=== PATIENT | female | born 1960 | race American Indian/Alaskan Native ===

== ENCOUNTER 2019-03-25 10:30 | Emergency (ER) | payer OTHER ==
[2019-03-25 10:59] VITALS: BP 140/76
--- NOTE | 2019-03-25 11:05 | Emergency Department Report ---
Chief Complaint: Upper Respiratory Infection Stated Complaint: CHEST PAIN,COUGH,FEVER Time Seen by Provider: 03/25/19 11:02 - HPI History of Present Illness: 58 yo female who presents with cough nasal congestion temperature 99 F. - Exam Vital Signs: Vital Signs 03/25/19 10:57 Temperature 97.8 F Pulse Rate 82 Respiratory 18 Rate Blood Pressure 140/76 O2 Sat by Pulse 97 Oximetry Physical Exam: well appearing normal vital signs lung CTA B no oropharygeal lesions steady normal gait MSE screening note: Focused history and physical exam performed. Due to findings the following was ordered: URI, viral: no indication for abx MSE performed recommended OTC treatment ED Disposition for MSE Clinical Impression: Viral upper respiratory illness Disposition: Z MED SCREENING EXAM-LEFT Is pt being admited?: No Does the pt Need Aspirin: No Condition: Stable Additional Instructions: Please use Aftrin, Claritin and cough syrup for the next 7 days. The virus will last for 7-10 days.
== END 2019-03-25 11:05 | disposition left against medical advice (07) ==
LOC: ED 10:30
DX: J06.9 Acute upper respiratory infection, unspecified (principal)
CPT/HCPCS: 99281

== ENCOUNTER 2020-06-04 13:49 | Inpatient (IN) | payer BC, OTHER ==
--- NOTE | 2020-06-04 15:11 | Emergency Department Report ---
Blank Doc - Documentation Documentation: 59-year-old female that presents with cough, chest pain, shortness of breath and dizziness. Febrile and tachycardia in triage. 1- This initial assessment/diagnostic orders/clinical plan/ treatment(s) is/are subject to change based on pt's health status, clinical progression and re- assessment by fellow clinical providers in the ED. Further treatment and workup at subsequent clinical provers discretion. Patient/guardians urged not to elope from ED as their condition may be serious if not clinically assessed and managed. 2-cardiac/sepsis work-up
[2020-06-04] MEDS ORDERED: ACETAMINOPHEN 500 MG TAB PO ONE (15:16)
--- NOTE | 2020-06-04 15:24 | XRay Report ---
CHEST PA AND LATERAL VIEWS INDICATION: Chest Pain. COMPARISON: None. FINDINGS: Support devices: None. Heart: Within normal limits. Lungs/Pleura: There are patchy bilateral pulmonary opacities. No pleural abnormality. IMPRESSION: 1. Patchy bilateral pulmonary opacities are nonspecific. These could be inflammatory. CT would be use ful to better characterize these. Signer Name: Chidi Tracey MD Signed: 06/04/2020 3:19 PM Workstation Name: [id number]
[2020-06-04 16:02] LABS: Alanine Aminotransferase 24 units/L (7-56); Albumin 3.8 g/dL (3.9-5); Blood Urea Nitrogen 10 mg/dL (7-17); Calcium 8.2 mg/dL (8.4-10.2); Hemolysis Index 1
[2020-06-04 16:08] LABS: BUN/Creatinine Ratio 17
[2020-06-04 16:22] LABS: Basophils % (Auto) 0.2 % (0.0-1.8); Eosinophils # (Auto) 0.1 K/mm3 (0.0-0.4); Eosinophils % (Auto) 2.2 % (0.0-4.3); Hematocrit 37.1 % (30.3-42.9); Hemoglobin 12.5 gm/dl (10.1-14.3); Lymphocytes # (Auto) 0.8 K/mm3 (1.2-5.4); Lymphocytes % (Auto) 19.3 % (13.4-35.0); Mean Corpuscular HGB Conc 34 % (30-34); Mean Corpuscular Volume 84 fl (79-97); Monocytes # (Auto) 0.1 K/mm3 (0.0-0.8); Monocytes % (Auto) 2.9 % (0.0-7.3); Red Cell Distribution Width 14.6 % (13.2-15.2)
[2020-06-04 16:26] LABS: Platelet Count 85 K/mm3 (140-440)
[2020-06-04 16:27] LABS: Bilirubin,Urine NEG (Negative); Blood,Urine SM (Negative); Color,Urine Yellow (Yellow); Protein,Urine <15 mg/dL mg/dL (Negative); Urobilinogen,Urine < 2.0 mg/dL (<2.0)
[2020-06-04 16:34] LABS: INR 1.12 (0.87-1.13)
[2020-06-04 16:35] LABS: Partial Thromboplastin Time 30.3 Sec. (24.2-36.6)
[2020-06-04] MEDS ORDERED: cefTRIAXone/NS 2 GM/100 ML 2 GM/100 ML BAG IV ONE (17:14)
[2020-06-04] MEDS ORDERED: AZITHROMYCIN/NS 500 MG/250 ML 500 MG/250 ML BAG IV ONE (17:14)
--- NOTE | 2020-06-04 17:51 | History and Physical Report ---
History of Present Illness Chief complaint: I feel weak, I have been coughing and I feel dizzy History of present illness: 59 YO Female with NO PMH presents to ED for evaluation. Patient reports "I feel weak, I have been coughing". Patient states that she has experienced generalized weakness, body aches, dry cough, decreased exercise tolerance, malaise, loss of sense of smell, loss of sense of taste over the past 5 days with persistently worsening symptoms over the same timeframe. Patient transported to [facility] via private vehicle for further care and evaluation of the aforementioned symptoms. The patient was seen and evaluated in the emergency department. All lab and imaging studies reviewed. The patient underwent a checks x-ray which revealed bilateral pneumonia. The patient was found to have a pulse oximetry of 88% on exertion which is consistent with acute hypoxemic respiratory failure. The patient was admitted to the medical floor and initiated on pneumonia protocol as well as coronavirus protocol. Patient denies fever, chills, chest pain, skin rash, recent ill contacts, or known exposure to COVID-19. Patient received the first dose of her COVID-19 vaccination. Series. No prior admission for review. No medication listed at time of admission for reconciliation. Past History Past Medical History: No medical history, other (Reviewed) Past Surgical History: No surgical history, Other (Reviewed) Social history: single. denies: smoking, alcohol abuse, prescription drug abuse Family history: no significant family history (Reviewed) Medications and Allergies Allergies Allergy/AdvReac Type Severity Reaction Status Date / Time No Known Allergies Allergy Unverified 03/25/19 10:50 Active Meds: Active Medications Azithromycin (Zithromax/Ns) 500 mg in 250 mls @ 250 mls/hr IV ONCE ONE; Protoco l Stop: 06/04/20 18:13 Last Admin: 06/04/20 17:40 Dose: 250 mls/hr Documented by: Review of Systems Constitutional: fatigue, weakness, malaise, no weight loss, no weight gain, no fever, no chills Ears, nose, mouth and throat: other (Loss of sense of smell, loss of sense of taste), no ear pain, no ear discharge, no decreased hearing Breasts: no change in shape, no swelling, no mass Cardiovascular: no chest pain, no orthopnea, no palpitations, no rapid/irregular heart beat Respiratory: cough, cough with sputum, no hemoptysis Gastrointestinal: no abdominal pain, no nausea, no vomiting, no constipation, no change in bowel habits Genitourinary Female: no pelvic pain, no flank pain, no dysuria, no urinary frequency, no urgency Rectal: no pain, no incontinence, no bleeding Musculoskeletal: no neck stiffness, no arm numbness/tingling Integumentary: no rash, no pruritis, no sores, no wounds, no jaundice Neurological: no head injury, no weakness, no parathesias, no tingling, no seizures, no syncope, no tremors Psychiatric: no anxiety, no change in sleep habits, no insomnia, no hypersomnia, no change in appetite, no change in libido Endocrine: no cold intolerance, no polyphagia, no excessive thirst, no polydipsia, no polyuria, no excessive sweating Hematologic/Lymphatic: no easy bruising, no easy bleeding, no lymphadenopathy, no lymphedema Allergic/Immunologic: no anaphylaxis Exam - Constitutional Vitals: Temp Pulse Resp BP Pulse Ox 102.5 F H 80 20 124/74 95 06/04/20 14:25 06/04/20 16:25 06/04/20 17:13 06/04/20 14:25 06/04/20 17:13 General appearance: Present: mild distress - EENT Eyes: Present: PERRL ENT: hearing intact, clear oral mucosa - Neck Neck: Present: supple, normal ROM - Respiratory Respiratory effort: normal, labored, accessory muscle use Respiratory: bilateral: diminished, rhonchi - Cardiovascular Heart Sounds: Present: S1 & S2. Absent: rub, click - Extremities Extremities: pulses symmetrical, No edema Peripheral Pulses: within normal limits - Abdominal General gastrointestinal: Present: soft, non-tender, non-distended, normal bowel sounds Female genitourinary: Present: normal - Integumentary Integumentary: Present: clear, warm, dry - Musculoskeletal Musculoskeletal: gait normal, strength equal bilaterally - Psychiatric Psychiatric: appropriate mood/affect, intact judgment & insight - Neurologic Neurologic: CNII-XII intact, moves all extremities HEART Score - HEART Score Troponin: Troponin T < 0.010 ng/mL (0.00-0.029) 06/04/20 15:24 Results - Labs CBC & Chem 7: 06/04/20 15:24 06/04/20 17:44 Labs: Abnormal lab results 06/04/20 06/04/20 Range/Units 15:24 15:24 WBC 4.4 L (4.5-11.0) K/mm3 Plt Count 85 L (140-440) K/mm3 Lymph # (Auto) 0.8 L (1.2-5.4) K/mm3 Seg Neutrophils % 75.4 H (40.0-70.0) % Sodium 135 L (137-145) mmol/L Potassium 3.2 L (3.6-5.0) mmol/L Glucose 115 H (65-100) mg/dL Calcium 8.2 L (8.4-10.2) mg/dL Albumin 3.8 L (3.9-5) g/dL Assessment and Plan - Patient Problems (1) Acute hypoxemic respiratory failure Current Visit: Yes Status: Acute Plan to address problem: Chest x-ray, supplemental oxygen, pulse oximetry, nebulizer therapy, prone positioning while in bed, supportive care. (2) Bilateral pneumonia Current Visit: Yes Status: Acute Plan to address problem: Chest x-ray, CBC, CMP, supplemental oxygen, pulse oximetry, nebulizer therapy, blood culture, IV antibiotic therapy. (3) Suspected 2019 novel coronavirus infection Current Visit: Yes Status: Acute Plan to address problem: Coronavirus protocol: Contact precautions, isolation precautions, IV steroid therapy, IV antibiotic therapy, vitamin D therapy, vitamin C therapy, zinc therapy, prone positioning while in bed, (4) DVT prophylaxis Current Visit: Yes Status: Acute Plan to address problem: SCDs bilateral lower extremities while in bed, prophylactic anticoagulation. (5) Advance care planning Current Visit: Yes Status: Acute Plan to address problem: Disease education conducted, care plan discussed, diagnoses discussed, prognosis discussed, patient is full code, patient knowledges understanding agree with care plan, +30 minutes.
[2020-06-04] MEDS ORDERED: ALBUTEROL 2.5 MG/3 ML NEBU IH PRN (17:56)
[2020-06-04] MEDS ORDERED: ONDANSETRON 4 MG/2 ML INJ IV PRN (17:56)
[2020-06-04] MEDS ORDERED: ACETAMINOPHEN 325 MG TAB PO PRN (17:56)
--- NOTE | 2020-06-04 17:59 | Emergency Department Report ---
- General Chief Complaint: Chest Pain Stated Complaint: CHEST PAIN,DIZZINESS, COUGH, DIARRHEA Time Seen by Provider: 06/04/20 14:32 Source: patient Mode of arrival: Wheelchair Limitations: No Limitations - History of Present Illness Initial Comments: Patient is a 59-year-old F [place] female who is presenting with body aches cough. Patient is been symptomatic for 5 days. Cough is nonproductive. She does have decreased sense of taste and smell. Short of breath with exertion. Denies nausea vomiting but does have generalized body aches and diarrhea. Patient did receive her first dose of COVID-19 vaccine recently. - Related Data Allergies Allergy/AdvReac Type Severity Reaction Status Date / Time No Known Allergies Allergy Unverified 03/25/19 10:50 ED Review of Systems ROS: Stated complaint: CHEST PAIN,DIZZINESS, COUGH, DIARRHEA Other details as noted in HPI Comment: All other systems reviewed and negative ED Past Medical Hx - Past Medical History Previous Medical History?: No - Surgical History Past Surgical History?: No - Social History Smoking Status: Never Smoker Substance Use Type: None ED Physical Exam - General Limitations: No Limitations General appearance: alert, in no apparent distress, other (ill appearing but non toxic) - Head Head exam: Present: atraumatic, normocephalic - Eye Eye exam: Present: normal appearance - ENT ENT exam: Present: mucous membranes moist - Neck Neck exam: Present: normal inspection - Respiratory Respiratory exam: Present: respiratory distress (tachynea), rhonchi. Absent: normal lung sounds bilaterally, wheezes, rales - Cardiovascular Cardiovascular Exam: Present: regular rate, normal rhythm, normal heart sounds. Absent: systolic murmur, diastolic murmur, rubs, gallop - GI/Abdominal GI/Abdominal exam: Present: soft, normal bowel sounds. Absent: distended, tenderness, guarding, rebound - Extremities Exam Extremities exam: Present: normal inspection - Back Exam Back exam: Present: normal inspection - Neurological Exam Neurological exam: Present: alert, oriented X3 - Psychiatric Psychiatric exam: Present: normal affect, normal mood - Skin Skin exam: Present: warm, dry, intact, normal color. Absent: rash ED Course Vital Signs 06/04/20 06/04/20 06/04/20 14:25 15:59 16:25 Temperature 102.5 F H Pulse Rate 104 H 80 Respiratory 20 18 18 Rate Blood Pressure 124/74 [Right] O2 Sat by Pulse 99 95 Oximetry 06/04/20 06/04/20 17:11 17:13 Temperature Pulse Rate Respiratory 20 Rate Blood Pressure [Right] O2 Sat by Pulse 88 95 Oximetry ED Medical Decision Making - Lab Data Result diagrams: 06/04/20 15:24 06/04/20 15:24 Lab Results 06/04/20 06/04/20 06/04/20 Range/Units 15:24 15:24 15:24 WBC 4.4 L (4.5-11.0) K/mm3 RBC 4.40 (3.65-5.03) M/mm3 Hgb 12.5 (10.1-14.3) gm/dl Hct 37.1 (30.3-42.9) % MCV 84 (79-97) fl MCH 28 (28-32) pg MCHC 34 (30-34) % RDW 14.6 (13.2-15.2) % Plt Count 85 L (140-440) K/mm3 Lymph % (Auto) 19.3 (13.4-35.0) % Park % (Auto) 2.9 (0.0-7.3) % Eos % (Auto) 2.2 (0.0-4.3) % Baso % (Auto) 0.2 (0.0-1.8) % Lymph # (Auto) 0.8 L (1.2-5.4) K/mm3 Park # (Auto) 0.1 (0.0-0.8) K/mm3 Eos # (Auto) 0.1 (0.0-0.4) K/mm3 Baso # (Auto) 0.0 (0.0-0.1) K/mm3 Seg Neutrophils % 75.4 H (40.0-70.0) % Seg Neutrophils # 3.3 (1.8-7.7) K/mm3 PT 14.3 (12.2-14.9) Sec. INR 1.12 (0.87-1.13) APTT 30.3 (24.2-36.6) Sec. Sodium 135 L (137-145) mmol/L Potassium 3.2 L (3.6-5.0) mmol/L Chloride 98.6 (98-107) mmol/L Carbon Dioxide 25 (22-30) mmol/L Anion Gap 15 mmol/L BUN 10 (7-17) mg/dL Creatinine 0.6 (0.6-1.2) mg/dL Estimated GFR > 60 ml/min BUN/Creatinine Ratio 17 % Glucose 115 H (65-100) mg/dL Lactic Acid (0.7-2.0) mmol/L Calcium 8.2 L (8.4-10.2) mg/dL Total Bilirubin 0.40 (0.1-1.2) mg/dL AST 36 (5-40) units/L ALT 24 (7-56) units/L Alkaline Phosphatase 59 (35-129) units/L Troponin T < 0.010 (0.00-0.029) ng/mL Total Protein 6.9 (6.3-8.2) g/dL Albumin 3.8 L (3.9-5) g/dL Albumin/Globulin Ratio 1.2 % Urine Color (Yellow) Urine Turbidity (Clear) Urine pH (5.0-7.0) Ur Specific [place] (1.003-1.030) Urine Protein (Negative) mg/dL Urine Glucose (UA) (Negative) mg/dL Urine Ketones (Negative) mg/dL Urine Blood (Negative) Urine Nitrite (Negative) Urine Bilirubin (Negative) Urine Urobilinogen (<2.0) mg/dL Ur Leukocyte Esterase (Negative) Urine WBC (Auto) (0.0-6.0) /HPF Urine RBC (Auto) (0.0-6.0) /HPF U Epithel Cells (Auto) (0-13.0) /HPF 06/04/20 06/04/20 Range/Units 15:24 16:11 WBC (4.5-11.0) K/mm3 RBC (3.65-5.03) M/mm3 Hgb (10.1-14.3) gm/dl Hct (30.3-42.9) % MCV (79-97) fl MCH (28-32) pg MCHC (30-34) % RDW (13.2-15.2) % Plt Count (140-440) K/mm3 Lymph % (Auto) (13.4-35.0) % Park % (Auto) (0.0-7.3) % Eos % (Auto) (0.0-4.3) % Baso % (Auto) (0.0-1.8) % Lymph # (Auto) (1.2-5.4) K/mm3 [place] # (Auto) (0.0-0.8) K/mm3 Eos # (Auto) (0.0-0.4) K/mm3 Baso # (Auto) (0.0-0.1) K/mm3 Seg Neutrophils % (40.0-70.0) % Seg Neutrophils # (1.8-7.7) K/mm3 PT (12.2-14.9) Sec. INR (0.87-1.13) APTT (24.2-36.6) Sec. Sodium (137-145) mmol/L Potassium (3.6-5.0) mmol/L Chloride (98-107) mmol/L Carbon Dioxide (22-30) mmol/L Anion Gap mmol/L BUN (7-17) mg/dL Creatinine (0.6-1.2) mg/dL Estimated GFR ml/min BUN/Creatinine Ratio % Glucose (65-100) mg/dL Lactic Acid 0.70 (0.7-2.0) mmol/L Calcium (8.4-10.2) mg/dL Total Bilirubin (0.1-1.2) mg/dL AST (5-40) units/L ALT (7-56) units/L Alkaline Phosphatase (35-129) units/L Troponin T (0.00-0.029) ng/mL Total Protein (6.3-8.2) g/dL Albumin (3.9-5) g/dL Albumin/Globulin Ratio % Urine Color Yellow (Yellow) Urine Turbidity Clear (Clear) Urine pH 6.0 (5.0-7.0) Ur Specific [place] 1.010 (1.003-1.030) Urine Protein <15 mg/dl (Negative) mg/dL Urine Glucose (UA) Neg (Negative) mg/dL Urine Ketones Neg (Negative) mg/dL Urine Blood Sm (Negative) Urine Nitrite Neg (Negative) Urine Bilirubin Neg (Negative) Urine Urobilinogen < 2.0 (<2.0) mg/dL Ur Leukocyte Esterase Tr (Negative) Urine WBC (Auto) 1.0 (0.0-6.0) /HPF Urine RBC (Auto) 1.0 (0.0-6.0) /HPF U Epithel Cells (Auto) 1.0 (0-13.0) /HPF - Radiology Data [facility] [address] [place] [address] XRay Report Signed Patient: MARINA NOBLE MR#: [id number] 52 : 1960 Acct:[id number] Age/Sex: 59 / F ADM Date: 06/04/20 Loc: ED Attending Dr: Ordering Physician: CRUZ MORALES NP Date of Service: 06/04/20 Procedure(s): XR chest routine 2V Accession Number(s): [id number] cc: CRUZ MORALES NP Fluoro Time In Minutes: CHEST PA AND LATERAL VIEWS INDICATION: Chest Pain. COMPARISON: None. FINDINGS: Support devices: None. Heart: Within normal limits. Lungs/Pleura: There are patchy bilateral pulmonary opacities. No pleural abnormality. IMPRESSION: 1. Patchy bilateral pulmonary opacities are nonspecific. These could be inflammatory. CT would be useful to better characterize these. Signer Name: Chidi Tracey MD Signed: 06/04/2020 3:19 PM Workstation Name: [id number] - Medical Decision Making Patient's chest x-ray is significant for patchy bilateral infiltrates suggestive of COVID-19 pneumonia. Patient O2 sat is within normal limits while sitting but with minor ambulation she drops into the mid 80s. O2 sat was was witnessed by myself at 88%. Patient to be admitted to the hospitalist service for further management. Critical Care Time: Yes (30) Critical care attestation.: If time is entered above; I have spent that time in minutes in the direct care of this critically ill patient, excluding procedure time. ED Disposition Clinical Impression: Bilateral pneumonia, Hypoxia, Suspected 2019 novel coronavirus infection Disposition: OP ADMIT IP TO THIS HOSP Is pt being admited?: Yes Does the pt Need Aspirin: No Condition: Stable Instructions: Bacterial Pneumonia (ED) Referrals: PRIMARY CARE, [Primary Care Provider] - 3-5 Days Time of Disposition: 18:00
[2020-06-04] MEDS ORDERED: dexAMETHasone 20 MG/5 ML VIAL IV ONE (18:24)
[2020-06-04 18:56] LABS: C-Reactive Protein 11.1 mg/dL (0.00-1.30)
[2020-06-04] MEDS ORDERED: SODIUM CHLORIDE 0.9% 1000 ML 1,000 ML IV ONE (19:16)
[2020-06-04] MEDS: methylPREDNISolone Sod Succinate 40 MG/1 ML INJ IV SCH (20:29)
[2020-06-04] MEDS ORDERED: POTASSIUM CHLORIDE ER 20 MEQ TAB PO ONE (21:32)
[2020-06-04] MEDS: ZINC SULFATE 220 MG CAP PO SCH (23:20)
[2020-06-04] MEDS: ASCORBIC ACID 500 MG TAB PO SCH (23:20)
[2020-06-04] MEDS: HEPARIN 5,000 UNIT/1 ML VIAL SUB-Q SCH (23:21)
[2020-06-05] MEDS: SODIUM CHLORIDE 0.9% 1000 ML 1,000 ML IV SCH (00:49)
[2020-06-05] MEDS: methylPREDNISolone Sod Succinate 40 MG/1 ML INJ IV SCH ×3 (03:31→21:16)
--- NOTE | 2020-06-05 07:26 | Progress Note ---
Assessment and Plan Assessment and plan: 59 YO Female with NO PMH presents to ED for evaluation. Patient reports "I feel weak, I have been coughing". Patient states that she has experienced generalized weakness, body aches, dry cough, decreased exercise tolerance, malaise, loss of sense of smell, loss of sense of taste over the past 5 days wi th persistently worsening symptoms over the same timeframe. Patient transported to [facility] via private vehicle for further care and evaluation of the aforementioned symptoms. The patient was seen and evaluated in the emergency department. All lab and imaging studies reviewed. The patient underwent a checks x-ray which revealed bilateral pneumonia. The patient was found to have a pulse oximetry of 88% on exertion which is consistent with acute hypoxemic respiratory failure. The patient was admitted to the medical floor and initiated on pneumonia protocol as well as coronavirus protocol. Patient denies fever, chills, chest pain, skin rash, recent ill contacts, or known exposure to COVID-19. Patient received the first dose of her COVID-19 vaccination. Series. No prior admission for review. No medication listed at time of admission for reconciliation. Chest x-ray shows bilateral opacities consistent with pneumonia 06/05/2020: Continue supportive care patient shows some improvement. Continue empiric antibiotic coverage. Await Covid testing results. Consider steroids in the interim. Although the patient has received first dose of Covid vaccine we have seen a few people with the same condition come back positive. If procalcitonin comes back low antibiotics can be discontinued. Continue daily oxygen evaluation. (1) Acute hypoxemic respiratory failure Current Visit: Yes Status: Acute Plan to address problem: Chest x-ray, supplemental oxygen, pulse oximetry, nebulizer therapy, prone positioning while in bed, supportive care. (2) Bilateral pneumonia Current Visit: Yes Status: Acute Plan to address problem: Chest x-ray, CBC, CMP, supplemental oxygen, pulse oximetry, nebulizer therapy, blood culture, IV antibiotic therapy. (3) Suspected 2019 novel coronavirus infection Current Visit: Yes Status: Acute Plan to address problem: Coronavirus protocol: Contact precautions, isolation precautions, IV steroid therapy, IV antibiotic therapy, vitamin D therapy, vitamin C therapy, zinc therapy, prone positioning while in bed, (4) DVT prophylaxis Current Visit: Yes Status: Acute Plan to address problem: SCDs bilateral lower extremities while in bed, prophylactic anticoagulation. (5) Advance care planning Current Visit: Yes Status: Acute Plan to address problem: Disease education conducted, care plan discussed, diagnoses discussed, prognosis discussed, patient is full code, patient knowledges understanding agree with care plan, +30 minutes. History Interval history: Patient seen and examined, resting comfortable, still with some exertional dy spnea, and cough Hospitalist Physical - Physical exam Narrative exam: General appearance: Present: mild distress - EENT Eyes: Present: PERRL ENT: hearing intact, clear oral mucosa - Neck Neck: Present: supple, normal ROM - Respiratory Respiratory effort: normal, labored, accessory muscle use Respiratory: bilateral: diminished, rhonchi - Cardiovascular Heart Sounds: Present: S1 & S2. Absent: rub, click - Extremities Extremities: pulses symmetrical, No edema Peripheral Pulses: within normal limits - Abdominal General gastrointestinal: Present: soft, non-tender, non-distended, normal bowel sounds Female genitourinary: Present: normal - Integumentary Integumentary: Present: clear, warm, dry - Musculoskeletal Musculoskeletal: gait normal, strength equal bilaterally - Psychiatric Psychiatric: appropriate mood/affect, intact judgment & insight - Neurologic Neurologic: CNII-XII intact, moves all extremities - Constitutional Vitals: Temp Pulse Resp BP Pulse Ox 98.5 F 77 18 99/62 96 06/05/20 05:58 06/05/20 05:58 06/05/20 05:58 06/05/20 05:58 06/05/20 05:58 General appearance: Present: mild distress HEART Score - HEART Score Troponin: Troponin T < 0.010 ng/mL (0.00-0.029) 06/04/20 15:24 Results - Labs CBC & Chem 7: 06/05/20 07:11 06/05/20 07:11 Labs: Laboratory Last Values WBC 4.4 K/mm3 (4.5-11.0) L 06/04/20 15:24 RBC 4.40 M/mm3 (3.65-5.03) 06/04/20 15:24 Hgb 12.5 gm/dl (10.1-14.3) 06/04/20 15:24 Hct 37.1 % (30.3-42.9) 06/04/20 15:24 MCV 84 fl (79-97) 06/04/20 15:24 MCH 28 pg (28-32) 06/04/20 15:24 MCHC 34 % (30-34) 06/04/20 15:24 RDW 14.6 % (13.2-15.2) 06/04/20 15:24 Plt Count 85 K/mm3 (140-440) L 06/04/20 15:24 Lymph % (Auto) 19.3 % (13.4-35.0) 06/04/20 15:24 [place] % (Auto) 2.9 % (0.0-7.3) 06/04/20 15:24 Eos % (Auto) 2.2 % (0.0-4.3) 06/04/20 15:24 Baso % (Auto) 0.2 % (0.0-1.8) 06/04/20 15:24 Lymph # (Auto) 0.8 K/mm3 (1.2-5.4) L 06/04/20 15:24 [place] # (Auto) 0.1 K/mm3 (0.0-0.8) 06/04/20 15:24 Eos # (Auto) 0.1 K/mm3 (0.0-0.4) 06/04/20 15:24 Baso # (Auto) 0.0 K/mm3 (0.0-0.1) 06/04/20 15:24 Seg Neutrophils % 75.4 % (40.0-70.0) H 06/04/20 15:24 Seg Neutrophils # 3.3 K/mm3 (1.8-7.7) 06/04/20 15:24 PT 14.3 Sec. (12.2-14.9) 06/04/20 15:24 INR 1.12 (0.87-1.13) 06/04/20 15:24 APTT 30.3 Sec. (24.2-36.6) 06/04/20 15:24 D-Dimer 458.25 ng/mlDDU (0-234) H 06/04/20 17:44 Sodium 135 mmol/L (137-145) L 06/04/20 15:24 Potassium 3.2 mmol/L (3.6-5.0) L 06/04/20 15:24 Chloride 98.6 mmol/L (98-107) 06/04/20 15:24 Carbon Dioxide 25 mmol/L (22-30) 06/04/20 15:24 Anion Gap 15 mmol/L 06/04/20 15:24 BUN 10 mg/dL (7-17) 06/04/20 15:24 Creatinine 0.6 mg/dL (0.6-1.2) 06/04/20 15:24 Estimated GFR > 60 ml/min 06/04/20 15:24 BUN/Creatinine Ratio 17 % 06/04/20 15:24 Glucose 108 mg/dL (65-100) H 06/04/20 17:44 Lactic Acid 1.50 mmol/L (0.7-2.0) 06/04/20 20:29 Calcium 8.2 mg/dL (8.4-10.2) L 06/04/20 15:24 Ferritin 339.0 ng/mL (10.0-200.0) H 06/04/20 17:44 Total Bilirubin 0.40 mg/dL (0.1-1.2) 06/04/20 15:24 AST 36 units/L (5-40) 06/04/20 15:24 ALT 24 units/L (7-56) 06/04/20 15:24 Alkaline Phosphatase 59 units/L (35-129) 06/04/20 15:24 Lactate Dehydrogenase 306 units/L (91-180) H 06/04/20 17:44 Troponin T < 0.010 ng/mL (0.00-0.029) 06/04/20 15:24 C-Reactive Protein 11.10 mg/dL (0.00-1.30) H 06/04/20 17:44 Total Protein 6.9 g/dL (6.3-8.2) 06/04/20 15:24 Albumin 3.8 g/dL (3.9-5) L 06/04/20 15:24 Albumin/Globulin Ratio 1.2 % 06/04/20 15:24 Urine Color Yellow (Yellow) 06/04/20 16:11 Urine Turbidity Clear (Clear) 06/04/20 16:11 Urine pH 6.0 (5.0-7.0) 06/04/20 16:11 Ur Specific [place] 1.010 (1.003-1.030) 06/04/20 16:11 Urine Protein <15 mg/dl mg/dL (Negative) 06/04/20 16:11 Urine Glucose (UA) Neg mg/dL (Negative) 06/04/20 16:11 Urine Ketones Neg mg/dL (Negative) 06/04/20 16:11 Urine Blood Sm (Negative) 06/04/20 16:11 Urine Nitrite Neg (Negative) 06/04/20 16:11 Urine Bilirubin Neg (Negative) 06/04/20 16:11 Urine Urobilinogen < 2.0 mg/dL (<2.0) 06/04/20 16:11 Ur Leukocyte Esterase Tr (Negative) 06/04/20 16:11 Urine WBC (Auto) 1.0 /HPF (0.0-6.0) 06/04/20 16:11 Urine RBC (Auto) 1.0 /HPF (0.0-6.0) 06/04/20 16:11 U Epithel Cells (Auto) 1.0 /HPF (0-13.0) 06/04/20 16:11 Microbiology: Microbiology 06/04/20 15:18 Peripheral/Venous Blood Culture - Preliminary Culture in Progress 06/04/20 15:24 Peripheral/Venous Blood Culture - Preliminary Culture in Progress Baker/IV: Voiding Method Toilet Active Medications - Current Medications Current Medications: Generic Name Dose Route Start Last Admin Trade Name Freq PRN Reason Stop Dose Admin Acetaminophen 650 mg 06/04/20 17:56 Acetaminophen 325 Mg Tab PO Q4H PRN Pain MILD(1-3)/Fever >100.5/LAZO Albuterol 2.5 mg 06/04/20 17:56 Albuterol 2.5 Mg/3 Ml Nebu IH Q4HRT PRN Shortness Of Breath Ascorbic Acid 500 mg 06/04/20 22:00 06/04/20 23:20 Ascorbic Acid 500 Mg Tab PO 500 mg BID ANTWON Administration Cholecalciferol 1,000 unit 06/05/20 10:00 Cholecalciferol (Vit D3) 1000 Unit (25 Mcg) Tab PO QDAY ANTWON Heparin Sodium (Porcine) 5,000 unit 06/04/20 22:00 06/04/20 23:21 Heparin 5,000 Unit/1 Ml Vial SUB-Q 5,000 unit Q12HR ANTWON Administration Ceftriaxone Sodium 2 gm in 100 mls @ 200 mls/hr 06/05/20 18:00 Rocephin/Ns 2 Gm/100 Ml IV Q24H ANTWON Protocol Azithromycin 500 mg in 250 mls @ 250 mls/hr 06/05/20 16:00 Zithromax/Ns IV Q24H ANTWON Protocol Sodium Chloride 1,000 mls @ 75 mls/hr 06/04/20 21:15 06/05/20 00:49 Nacl 0.9% 1000 Ml IV 75 mls/hr DIRECT ANTWON Administration Methylprednisolone Sodium Succinate 40 mg 06/04/20 20:00 06/05/20 03:31 Methylprednisolone Sod Succinate 40 Mg/1 Ml Inj IV 40 mg Q8H ANTWON Administration Ondansetron HCl 4 mg 06/04/20 17:56 Ondansetron 4 Mg/2 Ml Inj IV Q8H PRN Nausea And Vomiting Sodium Chloride 10 ml 06/04/20 22:00 06/04/20 23:22 Sodium Chloride 0.9% 10 Ml Flush Syringe IV 10 ml BID ANTWON Administration Sodium Chloride 10 ml 06/04/20 17:56 Sodium Chloride 0.9% 10 Ml Flush Syringe IV PRN PRN LINE FLUSH Zinc Sulfate 220 mg 06/04/20 22:00 06/04/20 23:20 Zinc Sulfate 220 Mg Cap PO 220 mg BID ANTWON Administration
[2020-06-05 08:08] LABS: Basophils % (Auto) 0.1 % (0.0-1.8); Hematocrit 38.3 % (30.3-42.9); Hemoglobin 12.6 gm/dl (10.1-14.3); Lymphocytes # (Auto) 0.7 K/mm3 (1.2-5.4); Lymphocytes % (Auto) 16.1 % (13.4-35.0); Mean Corpuscular HGB Conc 33 % (30-34); Mean Corpuscular Volume 84 fl (79-97); Monocytes # (Auto) 0.1 K/mm3 (0.0-0.8); Monocytes % (Auto) 1.7 % (0.0-7.3); Red Blood Count 4.55 M/mm3 (3.65-5.03); Red Cell Distribution Width 14.4 % (13.2-15.2)
[2020-06-05 08:15] LABS: Platelet Count 99 K/mm3 (140-440)
[2020-06-05 08:32] LABS: Alanine Aminotransferase 31 units/L (7-56); Albumin 3.6 g/dL (3.9-5); Blood Urea Nitrogen 9 mg/dL (7-17); Calcium 7.9 mg/dL (8.4-10.2); Hemolysis Index 3
[2020-06-05 08:42] LABS: BUN/Creatinine Ratio 18
[2020-06-05] MEDS: ZINC SULFATE 220 MG CAP PO SCH ×2 (10:28→21:16)
[2020-06-05] MEDS: CHOLECALCIFEROL (VIT D3) 1000 UNIT (25 mcg) TAB PO SCH (10:28)
[2020-06-05] MEDS: ASCORBIC ACID 500 MG TAB PO SCH ×2 (10:28→21:16)
[2020-06-05] MEDS: HEPARIN 5,000 UNIT/1 ML VIAL SUB-Q SCH ×2 (10:29→21:23)
--- NOTE | 2020-06-05 13:54 | Electrocardiograph Report ---
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
[2020-06-05] MEDS: AZITHROMYCIN/NS 500 MG/250 ML 500 MG/250 ML BAG IV SCH (15:47)
[2020-06-05] MEDS: cefTRIAXone/NS 2 GM/100 ML 2 GM/100 ML BAG IV SCH (18:53)
[2020-06-05] MEDS: guaiFENesin DM 200/20 MG ORAL LIQD 10 ML PO PRN (21:23)
[2020-06-06] MEDS: guaiFENesin DM 200/20 MG ORAL LIQD 10 ML PO PRN ×4 (02:42→23:15)
[2020-06-06] MEDS: SODIUM CHLORIDE 0.9% 1000 ML 1,000 ML IV SCH ×2 (02:42→15:21)
[2020-06-06] MEDS: methylPREDNISolone Sod Succinate 40 MG/1 ML INJ IV SCH ×3 (03:44→21:42)
[2020-06-06 08:31] LABS: Hemoglobin 11.4 gm/dl (10.1-14.3); Mean Corpuscular HGB Conc 34 % (30-34); Mean Corpuscular Volume 85 fl (79-97); Platelet Count 99 K/mm3 (140-440); Red Blood Count 4.02 M/mm3 (3.65-5.03); Red Cell Distribution Width 14.9 % (13.2-15.2)
[2020-06-06 08:45] LABS: Blood Urea Nitrogen 7 mg/dL (7-17); Calcium 7.5 mg/dL (8.4-10.2); Hemolysis Index 8
[2020-06-06 08:47] LABS: BUN/Creatinine Ratio 14
[2020-06-06] MEDS: ZINC SULFATE 220 MG CAP PO SCH ×2 (10:18→21:42)
[2020-06-06] MEDS: ASCORBIC ACID 500 MG TAB PO SCH ×2 (10:18→21:43)
[2020-06-06] MEDS: CHOLECALCIFEROL (VIT D3) 1000 UNIT (25 mcg) TAB PO SCH (10:18)
[2020-06-06] MEDS: HEPARIN 5,000 UNIT/1 ML VIAL SUB-Q SCH ×2 (10:18→21:43)
[2020-06-06] MEDS: AZITHROMYCIN/NS 500 MG/250 ML 500 MG/250 ML BAG IV SCH (15:20)
--- NOTE | 2020-06-06 15:59 | Progress Note ---
Assessment and Plan (1) Acute hypoxemic respiratory failure Current Visit: Yes Status: Acute Plan to address problem: Improving (2) Bilateral pneumonia Current Visit: Yes Status: Acute Plan to address problem: Continue antibiotics (3) Suspected 2019 novel coronavirus infection Current Visit: Yes Status: Acute Plan to address problem: Coronavirus PCR was a send out and still pending On room air (4) DVT prophylaxis Current Visit: Yes Status: Acute Plan to address problem: SCDs bilateral lower extremities while in bed, prophylactic anticoagulation. (5) Advance care planning Current Visit: Yes Status: Acute Plan to address problem: Disease education conducted, care plan discussed, diagnoses discussed, prognosis discussed, patient is full code, patient knowledges understanding agree with care plan, +30 minutes. Subjective Date of service: 06/06/20 Principal diagnosis: Acute respiratory failure with hypoxia Interval history: Assessment and Plan Assessment and plan: 59 YO Female with NO PMH presents to ED for evaluation. Patient reports "I feel weak, I have been coughing". Patient states that she has experienced generalized weakness, body aches, dry cough, decreased exercise tolerance, malaise, loss of sense of smell, loss of sense of taste over the past 5 days with persistently worsening symptoms over the same timeframe. Patient tra nsported to [facility] via private vehicle for further care and evaluation of the aforementioned symptoms. The patient was seen and evaluated in the emergency department. All lab and imaging studies reviewed. The patient underwent a checks x-ray which revealed bilateral pneumonia. The patient was found to have a pulse oximetry of 88% on exertion which is consistent with acute hypoxemic respiratory failure. The patient was admitted to the medical floor and initiated on pneumonia protocol as well as coronavirus protocol. Patient denies fever, chills, chest pain, skin rash, recent ill contacts, or known exposure to COVID-19. Patient received the first dose of her COVID-19 vaccination. Series. No prior admission for review. No medication listed at time of admission for reconciliation. Chest x-ray shows bilateral opacities consistent with pneumonia 06/05/2020: Continue supportive care patient shows some improvement. Continue empiric antibiotic coverage. Await Covid testing results. Consider steroids in the interim. Although the patient has received first dose of Covid vaccine we have seen a few people with the same condition come back positive. If procalcitonin comes back low antibiotics can be discontinued. Continue daily oxygen evaluation. 06/06/2020 Patient doing well on room air Coronavirus PCR pending Tests sent to [place] and hence the delay Objective - Constitutional Vitals: Vital Signs - 12hr 06/06/20 06/06/20 04:15 12:20 Temperature 99.1 F 99.1 F Pulse Rate 68 77 Respiratory 16 22 Rate Blood Pressure 105/58 Blood Pressure 96/57 [Right] O2 Sat by Pulse 91 94 Oximetry General appearance: Present: mild distress, well-nourished - EENT Eyes: PERRL, EOM intact ENT: hearing intact, clear oral mucosa Ears: bilateral: normal - Neck Neck: supple, normal ROM - Respiratory Respiratory effort: normal Respiratory: bilateral: CTA - Breasts Breasts: normal - Cardiovascular Heart rate: 78 Rhythm: regular Heart Sounds: Present: S1 & S2. Absent: gallop, rub Extremities: pulses intact, No edema, normal color, Full ROM - Gastrointestinal General gastrointestinal: Present: soft, non-tender, non-distended, normal bowel sounds - Genitourinary Female genitourinary: normal - Integumentary Integumentary: clear, warm, dry - Musculoskeletal Musculoskeletal: 1, strength equal bilaterally - Neurologic Neurologic: moves all extremities - Psychiatric Psychiatric: memory intact, appropriate mood/affect, intact judgment & insight - Allied health notes Allied health notes reviewed: nursing, case management - Labs CBC & Chem 7: 06/06/20 07:16 06/06/20 07:16 Labs: Abnormal lab results 06/06/20 06/06/20 06/06/20 Range/Units 07:16 07:16 08:17 Plt Count 99 L (140-440) K/mm3 Potassium 3.2 L (3.6-5.0) mmol/L Creatinine 0.5 L (0.6-1.2) mg/dL Glucose 137 H (65-100) mg/dL POC Glucose 123 H (70-105) mg/dL Calcium 7.5 L (8.4-10.2) mg/dL 06/06/20 Range/Units 12:21 Plt Count (140-440) K/mm3 Potassium (3.6-5.0) mmol/L Creatinine (0.6-1.2) mg/dL Glucose (65-100) mg/dL POC Glucose 149 H (70-105) mg/dL Calcium (8.4-10.2) mg/dL HEART Score - HEART Score Troponin: Troponin T < 0.010 ng/mL (0.00-0.029) 06/04/20 15:24
[2020-06-06] MEDS: cefTRIAXone/NS 2 GM/100 ML 2 GM/100 ML BAG IV SCH (17:05)
--- NOTE | 2020-06-06 18:02 | Cat Scan Report ---
CT CHEST WITHOUT CONTRAST INDICATION / CLINICAL INFORMATION: Bilateral pneumonia. TECHNIQUE: Axial CT images were obtained through the chest without contrast. All CT scans at this location are p erformed using CT dose reduction for ALARA by means of automated exposure control. COMPARISON: None available. FINDINGS: There is diffuse bilateral pulmonary opacities. Small bilateral effusions are identified. Heart is no rmal in size. Upper abdomen appears normal. Mildly prominent axillary nodes are seen. No acute bone f indings. IMPRESSION: 1. Diffuse bilateral pulmonary opacities. Findings could represent atypical infection, viral pneumoni a. Follow-up and clinical correlation. Signer Name: Bishop Rooney MD Signed: 06/06/2020 5:57 PM Workstation Name: [id number]
[2020-06-07] MEDS: methylPREDNISolone Sod Succinate 40 MG/1 ML INJ IV SCH ×3 (05:03→21:10)
[2020-06-07] MEDS: CHOLECALCIFEROL (VIT D3) 1000 UNIT (25 mcg) TAB PO SCH (09:26)
[2020-06-07] MEDS: ZINC SULFATE 220 MG CAP PO SCH ×2 (09:27→21:11)
[2020-06-07] MEDS: ASCORBIC ACID 500 MG TAB PO SCH ×2 (09:27→21:22)
[2020-06-07] MEDS: guaiFENesin DM 200/20 MG ORAL LIQD 10 ML PO PRN ×2 (09:27→15:10)
[2020-06-07] MEDS: HEPARIN 5,000 UNIT/1 ML VIAL SUB-Q SCH ×2 (09:27→21:11)
[2020-06-07] MEDS ORDERED: POTASSIUM CHLORIDE ER 20 MEQ TAB PO ONE (12:00)
--- NOTE | 2020-06-07 12:57 | Progress Note ---
Assessment and Plan (1) Acute hypoxemic respiratory failure Current Visit: Yes Status: Acute Plan to address problem: Improved On room air (2) Bilateral pneumonia Current Visit: Yes Status: Acute Plan to address problem: Continue IV antibiotics (3) Suspected 2019 novel coronavirus infection Current Visit: Yes Status: Acute Plan to address problem: Next Coronavirus PCR pending The lab test is a send out to bradycardia (4) DVT prophylaxis Current Visit: Yes Status: Acute Plan to address problem: SCDs bilateral lower extremities while in bed, prophylactic anticoagulation. (5) Advance care planning Current Visit: Yes Status: Acute Plan to address problem: Disease education conducted, care plan discussed, diagnoses discussed, prognosis discussed, patient is full code, patient knowledges understanding agree with care plan, +30 minutes. 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 Patient reports "I feel weak, I have been coughing". Patient states that she has experienced ge neralized weakness, body aches, dry cough, decreased exercise tolerance, malaise, loss of sense of smell, loss of sense of taste over the past 5 days with persistently worsening symptoms over the same timeframe. Patient transported to [facility] via private vehicle for further care and evaluation of the a forementioned symptoms. The patient was seen and evaluated in the emergency department. All lab and imaging studies reviewed. The patient underwent a checks x-ray which revealed bilateral pneumonia. The patient was found to have a pulse oximetry of 88% on exertion which is consistent with acute hypoxemic respiratory failure. The patient was admitted to the medical floor and initiated on pneumonia protocol as well as coronavirus protocol. Patient denies fever, chills, chest pain, skin rash, recent ill contacts, or known exposure to COVID-19. Patient received the first dose of her COVID-19 vaccination. Series. No prior admission for review. No medication listed at time of admission for reconciliation. Chest x-ray shows bilateral opacities consistent with pneumonia 06/05/2020: Continue supportive care patient shows some improvement. Continue empiric antibiotic coverage. Await Covid testing results. Consider steroids in the interim. Although the patient has received first dose of Covid vaccine we have seen a few people with the same condition come back positive. If proc alcitonin comes back low antibiotics can be discontinued. Continue daily oxygen evaluation. 06/06/2020 Coronavirus PCR pending 06/07/2020 Coronavirus PCR pending Test was sent to [facility] because it could not be done in-house secondary to malfunction of the equipment Objective - Constitutional Vitals: Vital Signs - 12hr 06/07/20 06/07/20 05:36 12:07 Temperature 98.2 F 98.7 F Pulse Rate 60 68 Respiratory 20 16 Rate Blood Pressure 107/58 Blood Pressure 97/58 [Right] O2 Sat by Pulse 92 Oximetry General appearance: Present: no acute distress, well-nourished - EENT Eyes: PERRL, EOM intact ENT: hearing intact, clear oral mucosa Ears: bilateral: normal - Neck Neck: supple, normal ROM - Respiratory Respiratory effort: normal Respiratory: bilateral: CTA - Breasts Breasts: normal - Cardiovascular Heart rate: 78 Rhythm: regular Heart Sounds: Present: S1 & S2. Absent: gallop, rub Extremities: pulses intact, No edema, normal color, Full ROM - Gastrointestinal General gastrointestinal: Present: soft, non-tender, non-distended, normal bowel sounds - Genitourinary Female genitourinary: normal - Integumentary Integumentary: clear, warm, dry - Musculoskeletal Musculoskeletal: 1, strength equal bilaterally - Neurologic Neurologic: moves all extremities - Psychiatric Psychiatric: memory intact, appropriate mood/affect, intact judgment & insight - Labs CBC & Chem 7: 06/06/20 07:16 06/06/20 07:16 HEART Score - HEART Score Troponin: Troponin T < 0.010 ng/mL (0.00-0.029) 06/04/20 15:24
[2020-06-07] MEDS: AZITHROMYCIN/NS 500 MG/250 ML 500 MG/250 ML BAG IV SCH (16:00)
[2020-06-07] MEDS ORDERED: AZITHROMYCIN 250 MG TAB PO SCH (16:00)
[2020-06-07] MEDS: cefTRIAXone/NS 2 GM/100 ML 2 GM/100 ML BAG IV SCH (17:33)
[2020-06-07] MEDS ORDERED: AZITHROMYCIN/NS 500 MG/250 ML 500 MG/250 ML BAG IV ONE (17:54)
[2020-06-07] MEDS: guaiFENesin/CODEINE 100-10MG ORAL LIQD 5 ML PO PRN (21:13)
[2020-06-08] MEDS: methylPREDNISolone Sod Succinate 40 MG/1 ML INJ IV SCH ×3 (03:59→21:07)
[2020-06-08] MEDS: guaiFENesin/CODEINE 100-10MG ORAL LIQD 5 ML PO PRN (04:05)
[2020-06-08] MEDS: ASCORBIC ACID 500 MG TAB PO SCH ×2 (09:26→21:07)
[2020-06-08] MEDS: HEPARIN 5,000 UNIT/1 ML VIAL SUB-Q SCH ×2 (09:26→21:07)
[2020-06-08] MEDS: ZINC SULFATE 220 MG CAP PO SCH ×2 (09:26→21:07)
[2020-06-08] MEDS: CHOLECALCIFEROL (VIT D3) 1000 UNIT (25 mcg) TAB PO SCH (09:26)
[2020-06-08] MEDS ORDERED: LIPITOR 20 MG PO SCH (15:30)
--- NOTE | 2020-06-08 15:35 | Progress Note ---
Assessment and Plan (1) Acute hypoxemic respiratory failure Current Visit: Yes Status: Acute Plan to address problem: Improved (2) Bilateral pneumonia Current Visit: Yes Status: Acute Plan to address problem: IV antibiotics discontinued (3) Suspected 2019 novel coronavirus infection Current Visit: Yes Status: Acute Plan to address problem: Coronavirus PCR positive Patient on room air Patient is ready for discharge but does not want to go home till Monday Case management informed (4) DVT prophylaxis Current Visit: Yes Status: Acute Plan to address problem: SCDs bilateral lower extremities while in bed, prophylactic anticoagulation. (5) dischargeent Visit: Yes Status: Acute Patient is ready for discharge Case management to arrange for discharge to a safe place Informed Subjective Date of service: 06/08/20 Principal diagnosis: Acute respiratory failure with hypoxia Interval history: Assessment and Plan Assessment and plan: 59 YO Female with NO PMH presents to ED for evaluation. Patient reports "I feel weak, I have been coughing". Patient states that she has experienced generalized weakness, body aches, dry cough, decreased exercise tolerance, malaise, loss of sense of smell, loss of sense of taste over the past 5 days with persistently worsening symptoms over the same timeframe. Patient transported to [facility] via private vehicle for further care and evaluation of the aforementioned symptoms. The patient was seen and evaluated in the emergency department. All lab and imaging studies reviewed. The patient underwent a checks x-ray which revealed bilateral pneumonia. The patient was found to have a pulse oximetry of 88% on exertion which is consistent with acute hypoxemic respiratory failure. The patient was admitted to the medical floor and initiated on pneumonia protocol as well as coronavirus protocol. Patient denies fever, chills, chest pain, skin rash, recent ill contacts, or known exposure to COVID-19. Patient received the first dose of her COVID-19 vaccination. Series. No prior admission for review. No medication listed at time of admission for reconciliation. Chest x-ray shows bilateral opacities consistent with pneumonia 06/05/2020: Continue supportive care patient shows some improvement. Continue empiric antibiotic coverage. Await Covid testing results. Consider steroids in the interim. Although the patient has received first dose of Covid vaccine we have seen a few people with the same condition come back positive. If procalcitonin comes back low antibiotics can be discontinued. Continue daily oxygen evaluation. 06/06/2020 Symptomatically better Coronavirus PCR pending 06/07/2020 Patient on room air Coronavirus PCR pending 06/08/2020 Coronavirus PCR positive Patient on room air IV antibiotics discontinued Patient can be discharged but patient not willing to go home till 06/10/2020 Objective - Constitutional Vitals: Vital Signs - 12hr 06/08/20 06/08/20 05:15 12:10 Temperature 98.7 F 98.1 F Pulse Rate 53 L 81 Respiratory 18 22 Rate Blood Pressure 112/56 108/53 O2 Sat by Pulse 91 96 Oximetry General appearance: Present: no acute distress, well-nourished - EENT Eyes: PERRL, EOM intact ENT: hearing intact, clear oral mucosa Ears: bilateral: normal - Neck Neck: supple, normal ROM - Respiratory Respiratory effort: normal Respiratory: bilateral: CTA - Breasts Breasts: normal - Cardiovascular Heart rate: 78 Rhythm: regular Heart Sounds: Present: S1 & S2. Absent: gallop, rub Extremities: pulses intact, No edema, normal color, Full ROM - Gastrointestinal General gastrointestinal: Present: soft, non-tender, non-distended, normal bowel sounds - Genitourinary Female genitourinary: normal - Integumentary Integumentary: clear, warm, dry - Musculoskeletal Musculoskeletal: 1, strength equal bilaterally - Neurologic Neurologic: moves all extremities - Psychiatric Psychiatric: memory intact, appropriate mood/affect, intact judgment & insight - Labs CBC & Chem 7: 06/06/20 07:16 06/06/20 07:16 Labs: Abnormal lab results 06/05/20 Range/Units 12:00 Coronavirus (PCR) Positive A (Negative) HEART Score - HEART Score Troponin: Troponin T < 0.010 ng/mL (0.00-0.029) 06/04/20 15:24
[2020-06-08] MEDS: AZITHROMYCIN/NS 500 MG/250 ML 500 MG/250 ML BAG IV SCH (16:00)
[2020-06-08] MEDS: BENZONATATE 100 MG CAP PO SCH ×2 (16:29→21:07)
[2020-06-08] MEDS: cefTRIAXone/NS 2 GM/100 ML 2 GM/100 ML BAG IV SCH (17:02)
[2020-06-09] MEDS: methylPREDNISolone Sod Succinate 40 MG/1 ML INJ IV SCH ×3 (03:50→21:40)
[2020-06-09] MEDS: BENZONATATE 100 MG CAP PO SCH ×3 (05:20→21:40)
--- NOTE | 2020-06-09 08:56 | Progress Note ---
Assessment and Plan Assessment and plan: Acute hypoxemic respiratory failure Due to COVID-19 Requiring supplemental oxygen improved Patient saturates well on room air Bilateral pneumonia completed antibiotics COVID-19 positive 06/05/2020 Coronavirus PCR positive Patient on room air Patient is ready for discharge but does not want to go home till Monday Case management informed DVT prophylaxis SCDs bilateral lower extremities while in bed, prophylactic anticoagulation. Discharge planning ; patient is hemodynamically and clinically stable for discharge Patient was stable for discharge yesterday 06/08/2020 However the patient and her daughter requested to stay till Monday As there is no one to take her home, and the patient has no case to enter her house Daughter is out of town. Discussed extensively with the daughter over the phone I also discussed with case management DC planning per case management Possible discharge tomorrow Brief history 59 YO Female with NO PMH presents to ED for evaluation. Patient reports "I feel weak, I have been coughing". Patient states that she has experienced generalized weakness, body aches, dry cough, decreased exercise tolerance, malaise, loss of sense of smell, loss of sense of taste over the past 5 days with persistently worsening symptoms over the same timeframe. Patient transported to [facility] via private vehicle for further care and evaluation of the aforementioned symptoms. The patient was seen and evaluated in the emergency department. All lab and imaging studies reviewed. The patient underwent a [facility] x-ray which revealed bilateral pneumonia. The patient was found to have a pulse oximetry of 88% on exertion which is consistent with acute hypoxemic respiratory failure. The patient was admitted to the medical floor and initiated on pneumonia protocol as well as coronavirus protocol. Patient denies fever, chills, chest pain, skin rash, recent ill contacts, or known exposure to COVID-19. Patient received the first dose of her COVID-19 vaccination. Series. No prior admission for review. No medication listed at time of admission for reconciliation. Chest x-ray shows bilateral opacities consistent with pneumonia 06/05/2020: Continue supportive care patient shows some improvement. Continue empiric antibiotic coverage. Await Covid testing results. Consider steroids in the interim. Although the patient has received first dose of Covid vaccine we have seen a few people with the same condition come back positive. If procalcitonin comes back low antibiotics can be discontinued. Continue daily oxygen evaluation. 06/06/2020 Symptomatically better Coronavirus PCR pending 06/07/2020 Patient on room air Coronavirus PCR pending 06/08/2020 Coronavirus PCR positive Patient on room air IV antibiotics discontinued Patient can be discharged but patient not willing to go home till 06/10/2020 06/09/2020; Patient is clinically stable for discharge However due to social issues unable to discharge home Extensively spoke with the patient, patient's daughter and the case management Possible discharge home tomorrow, case management to assist with DC planning History Interval history: I have seen and examined the patient at bedside Patient's chart and medications reviewed Patient is comfortable no new complaints Saturating well on room air Alert awake oriented x3 Vital signs reviewed stable Hospitalist Physical - Constitutional Vitals: Temp Pulse Resp BP Pulse Ox 98.8 F 62 18 127/79 91 06/09/20 04:41 06/09/20 04:41 06/09/20 04:41 06/09/20 04:41 06/09/20 04:41 General appearance: Present: no acute distress, well-nourished - EENT Eyes: Present: PERRL, EOM intact - Neck Neck: Present: supple, normal ROM - Respiratory Respiratory effort: normal Respiratory: bilateral: diminished, negative: rales, rhonchi, wheezing - Cardiovascular Rhythm: regular Heart Sounds: Present: S1 & S2 - Extremities Extremities: no ischemia, No edema - Abdominal General gastrointestinal: soft, non-tender, non-distended, normal bowel sounds - Integumentary Integumentary: Present: clear, warm - Psychiatric Psychiatric: appropriate mood/affect, cooperative - Neurologic Neurologic: CNII-XII intact, moves all extremities HEART Score - HEART Score Troponin: Troponin T < 0.010 ng/mL (0.00-0.029) 06/04/20 15:24 Results - Labs CBC & Chem 7: 06/06/20 07:16 06/06/20 07:16 Labs: Laboratory Last Values WBC 8.1 K/mm3 (4.5-11.0) 06/06/20 07:16 RBC 4.02 M/mm3 (3.65-5.03) 06/06/20 07:16 Hgb 11.4 gm/dl (10.1-14.3) 06/06/20 07:16 Hct 34.0 % (30.3-42.9) 06/06/20 07:16 MCV 85 fl (79-97) 06/06/20 07:16 MCH 28 pg (28-32) 06/06/20 07:16 MCHC 34 % (30-34) 06/06/20 07:16 RDW 14.9 % (13.2-15.2) 06/06/20 07:16 Plt Count 99 K/mm3 (140-440) L 06/06/20 07:16 Lymph % (Auto) 16.1 % (13.4-35.0) 06/05/20 07:11 [place] % (Auto) 1.7 % (0.0-7.3) 06/05/20 07:11 Eos % (Auto) 0.0 % (0.0-4.3) 06/05/20 07:11 Baso % (Auto) 0.1 % (0.0-1.8) 06/05/20 07:11 Lymph # (Auto) 0.7 K/mm3 (1.2-5.4) L 06/05/20 07:11 [place] # (Auto) 0.1 K/mm3 (0.0-0.8) 06/05/20 07:11 Eos # (Auto) 0.0 K/mm3 (0.0-0.4) 06/05/20 07:11 Baso # (Auto) 0.0 K/mm3 (0.0-0.1) 06/05/20 07:11 Seg Neutrophils % 82.1 % (40.0-70.0) H 06/05/20 07:11 Seg Neutrophils # 3.4 K/mm3 (1.8-7.7) 06/05/20 07:11 PT 14.3 Sec. (12.2-14.9) 06/04/20 15:24 INR 1.12 (0.87-1.13) 06/04/20 15:24 APTT 30.3 Sec. (24.2-36.6) 06/04/20 15:24 D-Dimer 458.25 ng/mlDDU (0-234) H 06/04/20 17:44 Sodium 142 mmol/L (137-145) 06/06/20 07:16 Potassium 3.2 mmol/L (3.6-5.0) L 06/06/20 07:16 Chloride 106.3 mmol/L (98-107) 06/06/20 07:16 Carbon Dioxide 27 mmol/L (22-30) 06/06/20 07:16 Anion Gap 12 mmol/L 06/06/20 07:16 BUN 7 mg/dL (7-17) 06/06/20 07:16 Creatinine 0.5 mg/dL (0.6-1.2) L 06/06/20 07:16 Estimated GFR > 60 ml/min 06/06/20 07:16 BUN/Creatinine Ratio 14 % 06/06/20 07:16 Glucose 137 mg/dL (65-100) H 06/06/20 07:16 POC Glucose 149 mg/dL (70-105) H 06/06/20 12:21 Lactic Acid 1.50 mmol/L (0.7-2.0) 06/04/20 20:29 Calcium 7.5 mg/dL (8.4-10.2) L 06/06/20 07:16 Ferritin 339.0 ng/mL (10.0-200.0) H 06/04/20 17:44 Total Bilirubin 0.20 mg/dL (0.1-1.2) 06/05/20 07:11 AST 44 units/L (5-40) H 06/05/20 07:11 ALT 31 units/L (7-56) 06/05/20 07:11 Alkaline Phosphatase 58 units/L (35-129) 06/05/20 07:11 Lactate Dehydrogenase 306 units/L (91-180) H 06/04/20 17:44 Troponin T < 0.010 ng/mL (0.00-0.029) 06/04/20 15:24 C-Reactive Protein 11.10 mg/dL (0.00-1.30) H 06/04/20 17:44 Total Protein 6.8 g/dL (6.3-8.2) 06/05/20 07:11 Albumin 3.6 g/dL (3.9-5) L 06/05/20 07:11 Albumin/Globulin Ratio 1.1 % 06/05/20 07:11 Procalcitonin < 0.05 ng/mL (<0.15) 06/04/20 17:44 Urine Color Yellow (Yellow) 06/04/20 16:11 Urine Turbidity Clear (Clear) 06/04/20 16:11 Urine pH 6.0 (5.0-7.0) 06/04/20 16:11 Ur Specific [place] 1.010 (1.003-1.030) 06/04/20 16:11 Urine Protein <15 mg/dl mg/dL (Negative) 06/04/20 16:11 Urine Glucose (UA) Neg mg/dL (Negative) 06/04/20 16:11 Urine Ketones Neg mg/dL (Negative) 06/04/20 16:11 Urine Blood Sm (Negative) 06/04/20 16:11 Urine Nitrite Neg (Negative) 06/04/20 16:11 Urine Bilirubin Neg (Negative) 06/04/20 16:11 Urine Urobilinogen < 2.0 mg/dL (<2.0) 06/04/20 16:11 Ur Leukocyte Esterase Tr (Negative) 06/04/20 16:11 Urine WBC (Auto) 1.0 /HPF (0.0-6.0) 06/04/20 16:11 Urine RBC (Auto) 1.0 /HPF (0.0-6.0) 06/04/20 16:11 U Epithel Cells (Auto) 1.0 /HPF (0-13.0) 06/04/20 16:11 Coronavirus (PCR) Positive (Negative) A 06/05/20 12:00 Microbiology: Microbiology 06/04/20 15:18 Peripheral/Venous Blood Culture - Preliminary NO GROWTH AFTER 4 DAYS 06/04/20 15:24 Peripheral/Venous Blood Culture - Preliminary NO GROWTH AFTER 4 DAYS Baker/IV: Voiding Method Toilet Active Medications - Current Medications Current Medications: Generic Name Dose Route Start Last Admin Trade Name Freq PRN Reason Stop Dose Admin Acetaminophen 650 mg 06/04/20 17:56 06/06/20 18:34 Acetaminophen 325 Mg Tab PO 650 mg Q4H PRN Administration Pain MILD(1-3)/Fever >100.5/LAZO Albuterol 2.5 mg 06/04/20 17:56 Albuterol 2.5 Mg/3 Ml Nebu IH Q4HRT PRN Shortness Of Breath Ascorbic Acid 500 mg 06/04/20 22:00 06/08/20 21:07 Ascorbic Acid 500 Mg Tab PO 500 mg BID ANTWON Administration Atorvastatin Calcium 20 mg 05/03/21 22:00 06/08/20 21:07 Atorvastatin 20 Mg Tab PO 20 mg QHS ANTWON Administration Benzonatate 100 mg 06/08/20 16:00 06/09/20 05:20 Benzonatate 100 Mg Cap PO 100 mg Q8HR ANTWON Administration Cholecalciferol 1,000 unit 06/05/20 10:00 06/08/20 09:26 Cholecalciferol (Vit D3) 1000 Unit (25 Mcg) Tab PO 1,000 unit QDAY ANTWON Administration Heparin Sodium (Porcine) 5,000 unit 06/04/20 22:00 06/08/20 21:07 Heparin 5,000 Unit/1 Ml Vial SUB-Q 5,000 unit Q12HR ANTWON Administration Methylprednisolone Sodium Succinate 40 mg 06/04/20 20:00 06/09/20 03:50 Methylprednisolone Sod Succinate 40 Mg/1 Ml Inj IV 40 mg Q8H ANTWON Administration Ondansetron HCl 4 mg 06/04/20 17:56 Ondansetron 4 Mg/2 Ml Inj IV Q8H PRN Nausea And Vomiting Pseudoephedrine/Acetam/Chlorphenir 5 ml 06/07/20 19:01 06/08/20 04:05 Guaifenesin/Codeine 100-10mg Oral Liqd 5 Ml PO 5 ml Q4H PRN Administration Cough Sodium Chloride 10 ml 06/04/20 22:00 06/08/20 21:08 Sodium Chloride 0.9% 10 Ml Flush Syringe IV 10 ml BID ANTWON Administration Sodium Chloride 10 ml 06/04/20 17:56 Sodium Chloride 0.9% 10 Ml Flush Syringe IV PRN PRN LINE FLUSH Zinc Sulfate 220 mg 06/04/20 22:00 06/08/20 21:07 Zinc Sulfate 220 Mg Cap PO 220 mg BID ANTWON Administration
[2020-06-09] MEDS: CHOLECALCIFEROL (VIT D3) 1000 UNIT (25 mcg) TAB PO SCH (10:02)
[2020-06-09] MEDS: HEPARIN 5,000 UNIT/1 ML VIAL SUB-Q SCH ×2 (10:02→21:40)
[2020-06-09] MEDS: ASCORBIC ACID 500 MG TAB PO SCH ×2 (10:02→21:40)
[2020-06-09] MEDS: ZINC SULFATE 220 MG CAP PO SCH ×2 (10:02→21:40)
[2020-06-10] MEDS: methylPREDNISolone Sod Succinate 40 MG/1 ML INJ IV SCH (05:20)
[2020-06-10] MEDS: BENZONATATE 100 MG CAP PO SCH (05:20)
--- NOTE | 2020-06-10 10:18 | Discharge Summary ---
Providers - Providers Date of Admission: 06/04/20 17:56 Date of discharge: 06/10/20 Attending physician: LILIBETH VIRK Primary care physician: BUTTON SEWER Hospitalization Reason for admission: Acute hypoxic respiratory failure/positive COVID-19 Condition: Stable Pertinent studies: Chest x-ray CT chest Hospital course: 59 YO Female with with NO PMH presents to ED for evaluation. Patient reports "I feel weak, I have been coughing". Patient states that she has experienced generalized weakness, body aches, dry cough, decreased exercise tolerance, malaise, loss of sense of smell, loss of sense of taste over the past 5 days with persistently worsening symptoms over the same timeframe. Patient transported to [facility] via private vehicle for further care and evaluation of the aforementioned symptoms. The patient was seen and evaluated in the emergency department. All lab and imaging studies reviewed. The patient underwent a checks x-ray which revealed bilateral pneumonia. The patient was found to have a pulse oximetry of 88% on exertion which is consistent with acute hypoxemic respiratory failure. The patient was admitted to the medical floor and initiated on pneumonia protocol as well as coronavirus protocol. Bond PCR test positive. Treated per covid 19 protocol. Patient was hypoxic requiring supplemental oxygen during hospital stay , however gradually weaned oxygen today patient is saturating well on room air oxygen. No indication for home oxygen on discharge. 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 Family advised dietary modification exercise as tolerated and weight reduction when medically stable Patient is stable at discharge Chest x-ray shows bilateral opacities consistent with pneumonia Discharge diagnosis Acute hypoxemic respiratory failure Due to COVID-19 Requiring supplemental oxygen improved Patient saturates well on room air Bilateral pneumonia completed antibiotics COVID-19 positive 06/05/2020 Coronavirus PCR positive Patient on room air DVT prophylaxis SCDs bilateral lower extremities while in bed, prophylactic anticoagulation. Morbid obesity ; BMI 45.4 Patient needs weight reduction when medically stable discharge planning ; patient is hemodynamically and clinically stable for discharge. Stable at discharge stable Disposition: TO HOME OR SELFCARE Final Discharge Diagnosis (Prints w/discharge instructions): Acute hypoxic respiratory failure. Bilateral pneumonia. COVID-19 infection. Morbid obesity BMI 45.4 Time spent for discharge: 35 min Core Measure Documentation - Palliative Care Palliative Care/ Comfort Measures: Not Applicable - Core Measures Any of the following diagnoses?: none Exam - Constitutional Vitals: Temp Pulse Resp BP Pulse Ox 98.7 F 88 18 112/75 91 06/10/20 04:31 06/10/20 04:31 06/10/20 04:31 06/10/20 04:31 06/10/20 04:31 General appearance: Present: no acute distress, well-nourished - EENT Eyes: Present: PERRL, EOM intact - Neck Neck: Present: supple, normal ROM - Respiratory Respiratory effort: normal Respiratory: bilateral: diminished, negative: rales, rhonchi, wheezing Plan Activity: advance as tolerated Diet: regular Additional Instructions: Your resting room air and ambulatory room air O2 sats more than 95%. No indication for home oxygen. If you have worsening symptoms contact MD or go to emergency room. Continue COVID-19 isolation precautions, masks, social distancing and other protocols as instructed by the discharge nurse. 7 days of work excuse starting from 06/11/2020, check with primary care physician for additional days of work excuse if needed. Follow primary care physician within 1 week Follow up with: PRIMARY CARE, [Primary Care Provider] - 3-5 Days Forms: Work/School Release Form Prescriptions: dexAMETHasone [Dexamethasone] 6 mg PO DAILY #3 tablet Albuterol Mdi (or & Nicu Only) [ProAir HFA Inhaler] 2 puff IH QID PRN #8.5 gram PRN Reason: Shortness Of Breath Benzonatate [Tessalon Perles] 100 mg PO Q8HR #30 capsule Ascorbic Acid [Vitamin C] 500 mg PO BID #30 tablet Cholecalciferol Vit D3 [Vitamin D3 1,000 UNIT TAB] 1,000 unit PO QDAY #15 tablet Zinc Sulfate 220 mg PO BID #30 capsule
[2020-06-10] MEDS: HEPARIN 5,000 UNIT/1 ML VIAL SUB-Q SCH (11:37)
[2020-06-10] MEDS: ZINC SULFATE 220 MG CAP PO SCH (11:37)
[2020-06-10] MEDS: CHOLECALCIFEROL (VIT D3) 1000 UNIT (25 mcg) TAB PO SCH (11:37)
[2020-06-10] MEDS: ASCORBIC ACID 500 MG TAB PO SCH (11:38)
[2020-06-10 13:14] VITALS: BP 113/75
== END 2020-06-10 16:06 | disposition home or self-care (01) | DRG 177 ==
LOC: ED 13:49 → 3A 17:56
PROVIDERS: ADMIT Internal Medicine; ATTEND Internal Medicine
DX: U07.1 COVID-19 (principal); J96.01 Acute respiratory failure with hypoxia; J12.82 Pneumonia due to coronavirus disease 2019
CPT/HCPCS: 36415; 71046; 71250; 80048; 80053; 81001; 82140; 82728; 82947; 82962; 83615; 84145; 84484; 85025; 85027; 85379; 85610; 85730; 86140; 87040; 93005; 96361; 96365; 96366; 96368; 96375; G0378; J0456; J0696; J1100; J1644; J2920; J7030; U0003